=== PATIENT | female | born 1970 | race Hispanic/Latino ===

== ENCOUNTER 2021-04-30 10:33 | Outpatient (CLI) | payer OTHER ==
[2021-05-01 14:28] LABS: SARS-CoV-2 PCR by NAA Not Detected (NotDetected)
== END 2021-04-30 10:34 | disposition home or self-care (01) ==
LOC: LABBT 10:33
PROVIDERS: ATTEND Neurological Surgery
DX: Z01.812 Encounter for preprocedural laboratory examination (principal); M54.12 Radiculopathy, cervical region; Z20.822 Contact with and (suspected) exposure to COVID-19
CPT/HCPCS: U0003; U0005

== ENCOUNTER 2021-05-05 06:34 | Day surgery (SDC) | payer OTHER ==
[2021-05-04 14:19] VITALS: BMI 26.6
[2021-05-05] MEDS ORDERED: Fentanyl 250 MCG/5 ML VIAL ONE (06:53)
[2021-05-05] MEDS ORDERED: Thrombin 5000 UNITS/5 ML VIAL ONE (06:58)
[2021-05-05] MEDS ORDERED: Midazolam HCl 2 mg/2 ml Vial ONE (07:06)
[2021-05-05] MEDS ORDERED: Lidocaine 2% Jelly 5 ML TUBE ONE (07:06)
[2021-05-05] MEDS ORDERED: Dexmedetomidine 200 MCG/2 ML VIAL ONE (07:07)
[2021-05-05] MEDS ORDERED: ceFAZolin Sodium (SDC) 2 GM/100 ML BAG ONE (07:08)
[2021-05-05] MEDS ORDERED: Scopolamine 1.5 mg/72 hour Patch ONE (07:18)
== END 2021-05-05 07:40 | disposition home or self-care (01) ==
LOC: SDC 06:34
PROVIDERS: ATTEND Neurological Surgery
DX: M54.12 Radiculopathy, cervical region (principal); G89.29 Other chronic pain; G43.909 Migraine, unspecified, not intractable, without status migrainosus; Z53.9 Procedure and treatment not carried out, unspecified reason; Z79.3 Long term (current) use of hormonal contraceptives
CPT/HCPCS: J0690; J2250; J3010

== ENCOUNTER 2021-09-03 10:04 | Outpatient (CLI) | payer OTHER | END 2021-09-03 10:05 | disposition home or self-care (01) | LOC: TBSIIMAG 10:04 | PROVIDERS: ATTEND Neurological Surgery | DX: M47.22 Other spondylosis with radiculopathy, cervical region (principal); M48.02 Spinal stenosis, cervical region | CPT/HCPCS: 72141 ==

== ENCOUNTER 2022-01-21 11:34 | Outpatient (CLI) | payer OTHER | END 2022-01-21 11:35 | disposition home or self-care (01) | LOC: LABBT 11:34 | PROVIDERS: ATTEND Neurological Surgery | DX: M54.12 Radiculopathy, cervical region (principal); Z20.822 Contact with and (suspected) exposure to COVID-19 | CPT/HCPCS: 87811 ==

== ENCOUNTER 2022-01-26 06:03 | Day surgery (SDC) | payer OTHER ==
[2022-01-21 15:37] VITALS: BMI 24.0
[2022-01-26] MEDS ORDERED: EPINEPHrine 1 MG/ML AMP ONE (06:11)
[2022-01-26] MEDS ORDERED: Bupivacaine PF 0.5% 30 ML VIAL ONE (06:11)
[2022-01-26] MEDS ORDERED: Thrombin 5000 UNITS/5 ML VIAL ONE (06:11)
[2022-01-26] MEDS ORDERED: Scopolamine 1.5 mg/72 hour Patch ONE (06:22)
[2022-01-26] MEDS ORDERED: Famotidine/PF 20 mg/2ml Vial ONE (06:22)
[2022-01-26] MEDS ORDERED: Lidocaine 1% PF 5 ML VIAL ONE ×2 (06:25)
[2022-01-26] MEDS ORDERED: Neostigmine Methylsulfate 3 MG/3 ML SYRINGE ONE (06:25)
[2022-01-26] MEDS ORDERED: PROPOFOL 200 MG/20 ML VIAL ONE (06:25)
[2022-01-26] MEDS ORDERED: Dexamethasone 20 MG/5 ML VIAL ONE (06:25)
[2022-01-26] MEDS ORDERED: Metoclopramide HCl 10 MG/2 ML VIAL ONE (06:25)
[2022-01-26] MEDS ORDERED: Rocuronium Bromide 10 MG/ML (10ML VIAL) ONE (06:25)
[2022-01-26] MEDS ORDERED: Glycopyrrolate 0.2 MG/ML 5 ML SYRINGE ONE (06:25)
[2022-01-26] MEDS ORDERED: Ondansetron PF 4 MG/2 ML Vial ONE ×2 (06:25→09:27)
[2022-01-26] MEDS ORDERED: Albuterol Sulfate HFA (OR ONLY) ONE (06:25)
[2022-01-26] MEDS ORDERED: Sodium Chloride 0.9% 100 ML ONE ×2 (06:41→10:47)
[2022-01-26] MEDS ORDERED: CEFAZOLIN 2 GM VIAL ONE ×2 (06:41→10:47)
[2022-01-26] MEDS ORDERED: Midazolam HCl 2 mg/2 ml Vial ONE (06:46)
[2022-01-26] MEDS ORDERED: fentaNYL Citrate/PF 100 MCG/2 ML SYRINGE ONE (06:47)
[2022-01-26] MEDS ORDERED: Fentanyl 100 MCG/2 ML VIAL ONE ×2 (08:26→08:56)
[2022-01-26] MEDS ORDERED: HYDROcodone/Acetaminophen 5/325 mg Tablet ONE (11:18)
== END 2022-01-26 11:32 | disposition home or self-care (01) ==
LOC: SDC 06:03
PROVIDERS: ATTEND Neurological Surgery
PROC: 0RG10A0 Fusion of Cervical Vertebral Joint with Interbody Fusion Device, Anterior Approach, Anterior Column, Open Approach (ICD-10-PCS; principal; 2022-01-26)
DX: M54.12 Radiculopathy, cervical region (principal); G89.29 Other chronic pain; Z79.3 Long term (current) use of hormonal contraceptives
CPT/HCPCS: 76000; C1713; J0171; J0690; J1100; J2250; J2405; J2704; J2765; J3010; J3490; S0020; S0028

== ENCOUNTER 2022-06-07 10:28 | Outpatient (CLI) | payer OTHER ==
[2022-06-07 11:44] LABS: #Monocytes 0.6 10x3/uL (0.0-1.1); #Neutrophils 5.8 10x3/uL (1.5-8.4); %Basophils 0.3 % (0.0-2.0); %Eosinophils 0.5 % (0.0-6.0); %Lymphocytes 26.2 % (18.0-47.0); %Monocytes 6.3 % (0.0-10.0); %Neutrophils 66.2 % (40.0-75.0); Mean Corpuscular HGB CONC 31.5 g/dL (32.0-36.0); Mean Corpuscular Hemoglobin 23.3 pg (27.0-33.0); Mean Corpuscular Volume 73.9 fl (81.6-98.3); Mean Platelet Volume 10.4 fl (7.4-10.4); Platelet Count 323 10x3/uL (150-450); RBC Distribution Width 13.9 % (11.5-14.5); Red Blood Cell (RBC) Count 4.72 10x6/uL (3.90-5.03); White Blood Cell (WBC) Count 8.8 10x3/uL (3.5-10.5)
== END 2022-06-07 10:29 | disposition home or self-care (01) ==
LOC: LABBT 10:28
PROVIDERS: ATTEND Orthopaedic Surgery
DX: Z01.812 Encounter for preprocedural laboratory examination (principal); M77.11 Lateral epicondylitis, right elbow
CPT/HCPCS: 85025

== ENCOUNTER 2022-06-08 08:20 | Day surgery (SDC) | payer OTHER ==
[2022-06-07 09:57] VITALS: BMI 25.1
[2022-06-08] MEDS ORDERED: Fentanyl 250 MCG/5 ML VIAL ONE (10:10)
[2022-06-08] MEDS ORDERED: Midazolam HCl 2 mg/2 ml Vial ONE (10:11)
[2022-06-08] MEDS ORDERED: Lidocaine 2% 6 ML SYR ONE (10:11)
[2022-06-08] MEDS ORDERED: Bupivacaine HCl 0.5%/Epinephrine 1:200,000/PF 30 ml Vial ONE (10:23)
[2022-06-08] MEDS ORDERED: CEFAZOLIN 2 GM VIAL ONE (10:24)
[2022-06-08] MEDS ORDERED: Sodium Chloride 0.9% 100 ML ONE (10:24)
[2022-06-08] MEDS ORDERED: Lidocaine 1% PF 5 ML VIAL ONE (10:37)
[2022-06-08] MEDS ORDERED: PROPOFOL 200 MG/20 ML VIAL ONE (10:37)
[2022-06-08] MEDS ORDERED: Dexamethasone 20 MG/5 ML VIAL ONE (10:37)
[2022-06-08] MEDS ORDERED: Ondansetron PF 4 MG/2 ML Vial ONE (10:37)
[2022-06-08] MEDS ORDERED: Fentanyl 100 MCG/2 ML VIAL ONE ×2 (11:35→11:47)
[2022-06-08] MEDS ORDERED: Promethazine HCl 25 MG/ML VIAL ONE (12:11)
== END 2022-06-08 14:08 | disposition home or self-care (01) ==
LOC: SDC 08:20
PROVIDERS: ATTEND Orthopaedic Surgery
PROC: 0RNL0ZZ Release Right Elbow Joint, Open Approach (ICD-10-PCS; principal; 2022-06-08)
DX: M77.11 Lateral epicondylitis, right elbow (principal); G56.21 Lesion of ulnar nerve, right upper limb; J45.909 Unspecified asthma, uncomplicated; Z98.1 Arthrodesis status
CPT/HCPCS: J1100; J2250; J2405; J2550; J2704; J3010; J3490